=== PATIENT | male | born 1945 | race Caucasian/White ===

== ENCOUNTER → 2017-04-18 | Outpatient (CLI) | payer MEDICARE ==
--- NOTE | 2017-04-19 18:45 | XCELERA REPORT ---
[address] [address] Transthoracic Echocardiogram Report Name: CHANTAL DUFF Age: 71 yrs Gender: Male : 1945 Patient Status: Outpatient Patient Location: Study Date: 04/18/2017 08:04 AM Height: 67 in Weight: 212 lb BSA: 2.1 m2 Reason For Study: PULM HTN I27.2 Ordering Physician: LENI KEITH Performed By: Cesario Burnham Interpretation Summary technically difficult study. Limited imaging, subcostal not obtainable, Right heart poorly visualised on Apical view. No signif post pericardial effusion, and no LV dilatation to confirm diagnosis of Cardiomegaly. TR jet trace , best derived RVSP is <28 mm Hg (RAP 5) Unable to size RV and RA. your Dx of pulm hypertension canot be confirmed. May need RHC to confirm. Echo is merely a screening tool, and cannot be accurate juana in this patient's habitus. LVEF is visually 60-65 % with IVS distal hypokinesis but no other segmental regional abnormality seen. There is no LV diastolic dysfunction based on TDI. Trace MR, TR, UT are physioilogical. Very mild AV sclerosis, no , no AR. MMode/2D Measurements & Calculations RVDd: 2.9 cm LVIDd: 4.8 cm FS: 25.7 % Ao root diam: 3.7 cm IVSd: 1.1 cm LVIDs: 3.6 cm EDV(Teich): 110.0 ml LVPWd: 1.1 cm ESV(Teich): 54.5 ml Ao root area: 11.0 cm2 EF(Teich): 50.4 % LA dimension: 3.4 cm Doppler Measurements & Calculations MV E max tino: MV P1/2t max tino: Ao V2 max: LV V1 max P.5 cm/sec 49.4 cm/sec 128.3 cm/sec 3.9 mmHg MV A max tino: MV P1/2t: 48.0 msec Ao max PG: LV V1 max: 56.5 cm/sec 6.6 mmHg 99.3 cm/sec MV E/A: 0.84 MVA(P1/2t): 4.6 cm2 MV dec slope: 300.9 cm/sec2 PA V2 max: PI end-d tino: TR max tino: RAP systole: 93.8 cm/sec 108.6 cm/sec 217.9 cm/sec 10.0 mmHg PA max PG: TR max P.5 mmHg 19.2 mmHg RVSP(TR): 29.2 mmHg Left Ventricle There is mild concentric left ventricular hypertrophy. The left ventricle is normal in size. The left ventricular ejection fraction is normal. LV EF is 60-65 visual%. Doppler measurements suggest normal left ventricular diastolic function. by tissue doppler imaging. There is anteroseptal wall mild hypokinesis. There is no thrombus. Right Ventricle The right ventricle is grossly normal size. Atria The right atrium is normal in size. The left atrial size is normal. Mitral Valve There is mild mitral annular calcification. There is no evidence of mitral valve prolapse. There is no mitral valve stenosis. There is a trace amount of mitral regurgitation. Aortic Valve The aortic valve is normal in structure and functions normally. The aortic valve is trileaflet. The aortic valve opens well. There is no aortic valvular vegetation. There is no aortic valve stenosis. No aortic regurgitation is present. Tricuspid Valve The tricuspid valve is not well visualized secondary to technical limitations. There is no tricuspid stenosis. There is a trace or physiologic amount of tricuspid regurgitation. Best estimated RVSP is approximately 28 mm/Hg. Pulmonic Valve The pulmonic valve is not well visualized. There is a trace or physiologic amount of pulmonic regurgitation. Great Vessels The aortic root is normal size. Effusions Minimal pericardial effusion. I WMSI = 1.13 % Normal = 88 Segments Size X - Cannot 1 - Normal 2 - 3 - Akinetic4 - 1-2 small Interpret Hypokinetic Dyskinetic 3-5 moderate 5 - 6-14 large Aneurysmal 15-16 diffuse : LENI KEITH > Pranay Mcnulty
== END ==
LOC: SP 07:38
PROVIDERS: ATTEND Family Medicine
DX: I27.2 Other secondary pulmonary hypertension (principal)
CPT/HCPCS: 93306

== ENCOUNTER 2018-03-17 13:59 | Emergency (ER) | payer MEDICARE ==
[2018-03-17] MEDS ORDERED: LIDOCAINE 2% INJ (20 MG/ML) 20 ML MDV INJ ONE (14:26)
[2018-03-17] MEDS ORDERED: DIPH/PERTUSS(ACELL)/TETANUS VAC/PF 0.5 ML SYR (>=10YO) IM ONE (14:29)
--- NOTE | 2018-03-17 15:10 | ER Document Report ---
ED Hand/Wrist Injury - General Chief Complaint: Finger Injury Stated Complaint: FOREIGN OBJECT IN FINGER (FISH HOOK) Time Seen by Provider: 03/17/18 14:25 Mode of Arrival: Ambulatory Information source: Patient Notes: Patient is a 72-year-old male who has a fishhook in his right index finger that occurred while he was cleaning out his tackle box prior to arrival. Patient denies fishing or using it in the ocean or any other body of water anytime recently. States it was a fairly new fishhook. Patient states his last tetanus was a little over 5 years ago. TRAVEL OUTSIDE OF THE [place] IN LAST 30 DAYS: No - Related Data Allergies/Adverse Reactions: amantadine Allergy (Verified 03/17/18 14:26) Penicillins Allergy (Verified 03/17/18 14:26) Past Medical History - General Information source: Patient - Social History Smoking Status: Former Smoker Chew tobacco use (# tins/day): No Frequency of alcohol use: None Drug Abuse: None Family History: Reviewed & Not Pertinent Patient has suicidal ideation: No Patient has homicidal ideation: No - Past Medical History Cardiac Medical History: Reports: Hx Hypertension Renal/ Medical History: Denies: Hx Peritoneal Dialysis Review of Systems - Review of Systems Constitutional: No symptoms reported EENT: No symptoms reported Cardiovascular: No symptoms reported Respiratory: No symptoms reported Gastrointestinal: No symptoms reported Genitourinary: No symptoms reported Male Genitourinary: No symptoms reported Musculoskeletal: No symptoms reported Skin: See HPI Hematologic/Lymphatic: No symptoms reported Neurological/Psychological: No symptoms reported Physical Exam - Vital signs Vitals: Temp Pulse Resp BP Pulse Ox 98.6 F 78 16 135/63 H 94 03/17/18 14:22 03/17/18 14:22 03/17/18 14:22 03/17/18 14:22 03/17/18 14:22 - Notes Notes: PHYSICAL EXAMINATION: GENERAL: Well-appearing and in no acute distress. HEAD: Atraumatic, normocephalic. EYES: Pupils equal round and reactive to light, extraocular movements intact, sclera anicteric, conjunctiva are normal. NECK: Normal range of motion, supple without lymphadenopathy LUNGS: CTAB and equal. No wheezes rales or rhonchi. HEART: Regular rate and rhythm without murmurs EXTREMITIES: Normal range of motion, no pitting edema. No cyanosis. NEUROLOGICAL: Cranial nerves grossly intact. Normal sensory/motor exams. PSYCH: Normal mood, normal affect. SKIN: Warm, Dry, normal turgor, fishhook in right distal finger to the volar surface, no active bleeding or discharge, very superficial, barbed Course - Vital Signs Vital signs: Temp Pulse Resp BP Pulse Ox 98.6 F 70 16 139/68 H 96 03/17/18 15:26 03/17/18 15:26 03/17/18 14:22 03/17/18 15:26 03/17/18 15:26 Procedures - Additional Procedures [place] removal Time performed: 15:00 Notes: 03/17/18 15:08 Betadine was applied, area was anesthetized with 1% lidocaine, 2 cc, fishhook was pushed through, maria esther was cut off with wire cutters and fishhook was removed successfully. Patient tolerated very well. Discharge - Discharge Clinical Impression: [place] injury to finger Qualifiers: Encounter type: initial encounter Laterality: right Qualified Code(s): S69.91XA - Unspecified injury of right wrist, hand and finger(s), initial encounter Condition: Stable Disposition: HOME, SELF-CARE Additional Instructions: Return immediately for any new or worsening symptoms. Follow up with primary care provider, call tomorrow to make followup appointment. Prescriptions: Cephalexin [Cephalexin 250 MG Tablet] 250 mg PO BID #10 tablet Referrals: GIFTY KEITH MD [Primary Care Provider] - Follow up as needed
[2018-03-17 15:28] VITALS: BP 139/68
== END 2018-03-17 15:31 | disposition home or self-care (01) ==
LOC: ER 13:59
DX: S61.240A Puncture wound with foreign body of right index finger without damage to nail, initial encounter (principal); W26.8XXA Contact with other sharp object(s), not elsewhere classified, initial encounter; Y93.89 Activity, other specified; I10 Essential (primary) hypertension; Z88.8 Allergy status to other drugs, medicaments and biological substances; Z88.0 Allergy status to penicillin; Z87.891 Personal history of nicotine dependence
CPT/HCPCS: 99283; 90471; 90715; J3490